=== PATIENT | female | born 1990 | race Caucasian/White ===

== ENCOUNTER → 2016-12-08 | Outpatient (CLI) | payer BC ==
[~2016-12-08] MED LIST: CIPR500T87 PO; HYDR-3138 PO; HYDR-3240 PO; IBUP-1222 PO; METF500T4 PO; OMNIPAQUE 350 MG/ML, 100ML BOTTLE ONE; PRED50TA PO; TRAZ50TA18 PO
== END | disposition home or self-care (01) ==
LOC: CFH 11:27
PROVIDERS: ATTEND Specialist
DX: R91.1 Solitary pulmonary nodule (principal); R19.00 Intra-abdominal and pelvic swelling, mass and lump, unspecified site
CPT/HCPCS: 71260; 74177; Q9967